=== PATIENT | female | born 1965 | race Caucasian/White ===

== ENCOUNTER → 2021-10-28 09:53 | Outpatient (CLI) | payer BC, SELFPAY ==
--- NOTE | ~2021-10-28 | XR_ITS ---
XR foot RT 2V DATE: 10/28/2021 11:44 INDICATION: Right foot pain TECHNIQUE: AP and lateral views COMPARISON: None FINDINGS: Diffuse osteopenia. There is valgus and valgus and bunion deformity. There is moderately prominent osteoarthritis at the first metatarsophalangeal joint. Mild plantar calcaneal enthesopathy, without erosive change or periostitis. No fracture, dislocation, periosteal reaction or bone destruction. IMPRESSION: Osteopenia Hallux valgus and bunion deformity Osteoarthritic the first metatarsophalangeal joint Plantar calcaneal enthesopathy Reviewed, dictated and finalized at location A.
--- NOTE | ~2021-10-28 | XR_ITS ---
XR foot LT 2V DATE: 10/28/2021 11:44 INDICATION: Left foot pain TECHNIQUE: AP and lateral views COMPARISON: None FINDINGS: There is diffuse osteopenia. There is mild plantar and posterior calcaneal enthesopathy. There is mild osteoarthritis at the first metatarsophalangeal joint. There is mild hallux valgus and bunion deformity. No fracture or dislocation, periosteal reaction or bone destruction is detected. IMPRESSION: Hallux valgus and bunion deformity Mild osteophyte is at first metatarsophalangeal joint Mild plantar and posterior calcaneal enthesopathy Osteopenia Reviewed, dictated and finalized at location A.
--- NOTE | ~2021-10-28 | XR_ITS ---
XR sacroiliac joints min 3V DATE: 10/28/2021 11:44 INDICATION: Multiple joint pain. Sacroiliac pain. TECHNIQUE: AP and bilateral oblique views COMPARISON: None FINDINGS: There is degenerative change with spurring at the sacroiliac joints; otherwise no fracture or dislocation, ankylosis, erosive change or other significant abnormality is identified at the sacro iliac joints. 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 Reviewed, dictated and finalized at location A.
--- NOTE | ~2021-10-28 | XR_ITS ---
XR wrist LT 2V DATE: 10/28/2021 11:44 INDICATION: Left wrist pain TECHNIQUE: AP and lateral views COMPARISON: None FINDINGS: There is prominent narrowing at the radiocarpal joint. There is narrowing at the triscaphe joint. There is joint space narrowing and spurring at the first carpometacarpal joint. No fracture or dislocation, periosteal reaction or bone destruction, erosive change or periostitis is noted. IMPRESSION: Polyarticular osteoarthritis Reviewed, dictated and finalized at location A.
--- NOTE | ~2021-10-28 | XR_ITS ---
XR ankle RT 2V DATE: 10/28/2021 11:44 INDICATION: Right ankle pain TECHNIQUE: AP and lateral views COMPARISON: None FINDINGS: No fracture or dislocation of the ankle or disruption of the ankle mortise. No periosteal r eaction or bone destruction. Mild plantar calcaneal enthesopathy, without erosive change or periostitis. IMPRESSION: Mild plantar calcaneal enthesopathy Reviewed, dictated and finalized at location A.
--- NOTE | ~2021-10-28 | XR_ITS ---
XR ankle LT 2V DATE: 10/28/2021 11:44 INDICATION: Left ankle pain TECHNIQUE: AP and lateral views COMPARISON: None FINDINGS: There is osteopenia. No fracture or dislocation of the ankle or disruption of the ankle mortise. No periosteal reaction or bone destruction. Mild plantar and posterior calcaneal enthesopathy. IMPRESSION: Osteopenia Mild plantar and posterior calcaneal enthesopathy Reviewed, dictated and finalized at location A.
--- NOTE | ~2021-10-28 | XR_ITS ---
XR wrist RT 2V DATE: 10/28/2021 11:44 INDICATION: Right wrist pain TECHNIQUE: AP and lateral views COMPARISON: None FINDINGS: No fracture or dislocation, periosteal reaction or bone destruction, erosive change or remi drocalcinosis. There is mild narrowing and spurring at the radiocarpal joint consistent with mild osteoarthritis. Th ere is mild narrowing at the triscaphe joint as well. IMPRESSION: Mild osteoarthritis Reviewed, dictated and finalized at location A. IMPRESSION: Mild osteoarthritis
== END ==
PROVIDERS: PCP Internal Medicine; Visit Provider Nurse Practitioner Family
DX: M25.50 Pain in unspecified joint (principal); M85.89 Other specified disorders of bone density and structure, multiple sites; M20.12 Hallux valgus (acquired), left foot; M20.11 Hallux valgus (acquired), right foot; M21.611 Bunion of right foot; M77.32 Calcaneal spur, left foot; M77.31 Calcaneal spur, right foot; M19.072 Primary osteoarthritis, left ankle and foot; M19.071 Primary osteoarthritis, right ankle and foot; M19.032 Primary osteoarthritis, left wrist; M19.031 Primary osteoarthritis, right wrist
CPT/HCPCS: 72202; 73100; 73600; 73620

== ENCOUNTER → 2021-10-28 10:29 | Outpatient (CLI) | payer BC, SELFPAY ==
--- NOTE | ~2021-10-28 | DEXA_ITS ---
Bone Density Report Name: JOHAN ENCINAS Age: 55 Sex: Female Ethnicity: White Date of : 1965 Indication: postmenopausal; screening for osteoporosis; height loss; rheumatoid arthritis; Referring Provider: LorenaStan Study: Bone densitometry was performed. Exam Date: October 28, 2021 Accession number: [id number] Bone Density: Region BMD T-score Z-score Classification AP Spine (L1-L4) 0.857 -1.7 -0.5 Osteopenia Femoral Neck (Left) 0.728 -1.1 0.1 Osteopenia Total Hip (Left) 0.793 -1.2 -0.4 Osteopenia Femoral Neck (Right) 0.699 -1.3 -0.2 Osteopenia Total Hip (Right) 0.811 -1.1 -0.3 Osteopenia Total Hip Mean 0.802 -1.2 -0.4 Osteopenia World Health Organization criteria for BMD impression classify patients as: Normal (T-score at or above -1.0), Osteopenia (T-score between -1.0 and -2.5), or Osteoporosis (T-score at or below -2.5). 10-year Fracture Risk(1): Major Osteoporotic Fracture 7.9% Hip Fracture 0.6% Reported Risk Factors: [place] (), Neck BMD=0.699, BMI=20.7, rheumatoid arthritis (1) FRAX(R) Version 3.08. Fracture probability calculated for an untreated patient. Fracture probability may be lower if the patient has received treatment. Clinical Information Provided by Patient: Has rheumatoid arthritis Has used the following medications: Vitamin D, [employer] Patient maximum height was 62 Menopause Age: 53 Does not regularly consume dairy products Drinks caffeinated beverages Onset of menses at age 11 Number of children 2 Impression: The patient has low bone mass, based on the Total Spine T-score. The patient has an estimated ten-year risk of hip fracture of 0.6% and an estimated ten-year risk of major fracture of 7.9%, based on the WHO FRAX algorithm. Discussion: BONE DENSITY IS LOW AT ONE OR MORE SKELETAL SITES. This patient's lowest T-score is low at one or more skeletal sites. It meets the World Health Organization's (WHO) criteria for ?low bone mass? (T-score between -1.0 and -2.5). The patient's 10-year risk of fracture as calculated by FRAX is less than the threshold where pharmacological therapy is recommended by the National Osteoporosis Foundation (NOF). However, all treatment decisions require clinical judgment and consideration of individual patient factors, including patient preferences, comorbidities, previous drug use, risk factors not captured in the FRAX model (e.g., frailty, falls, vitamin D deficiency, increased bone turnover, interval significant decline in bone density) and possible under or overestimation of fracture risk by FRAX. The patient should follow a healthful lifestyle (good nutrition with adequate calcium and vitamin D, and appropriate weight-bearing exercise). Follow-Up: Consider repeating this study in 2 to 3 years to reassess this patient's st
== END ==
PROVIDERS: PCP Internal Medicine; Visit Provider Internal Medicine
DX: Z13.820 Encounter for screening for osteoporosis (principal); Z78.0 Asymptomatic menopausal state; M85.89 Other specified disorders of bone density and structure, multiple sites
CPT/HCPCS: 77080